=== PATIENT | male | born 2005 | race Caucasian/White ===

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

== ENCOUNTER 2025-02-15 18:24 | Emergency (ER) | payer OTHER ==
[~2025-02-15] VITALS: Ht 188 cm; Wt 113.4 kg
[2025-02-15 19:14] LABS: BASOPHILS ABSOLUTE AUTO 0.07 K/mm3 (0.00-0.23); BASOPHILS PERCENT AUTO 1 % (0-2); EOSINOPHILS ABSOLUTE AUTO 0.03 K/mm3 (0.00-0.68); EOSINOPHILS PERCENT AUTO 0 % (0-6); Hematocrit 44.3 % (37.0-53.0); Hemoglobin 16.1 g/dL (13.5-17.5); IMMATURE GRAN ABSOLUTE AUTO 0.04 K/mm3 (0.00-0.10); IMMATURE GRAN PERCENT AUTO 0 % (0-1); LYMPHOCYTES ABSOLUTE AUTO 1.46 K/mm3 (0.84-5.20); LYMPHOCYTES PERCENT AUTO 11 % (21-46); MONOCYTES ABSOLUTE AUTO 0.72 K/mm3 (0.16-1.47); MONOCYTES PERCENT AUTO 6 % (4-13); Mean Corpuscular HGB 29.4 pg (26.0-34.0); Mean Corpuscular HGB Conc 36.3 g/dL (31.5-36.5); Mean Corpuscular Volume 81 fL (80-100); Mean Platelet Volume 9.7 fL (9.1-12.4); NEUTROPHILS ABSOLUTE AUTO 10.75 K/mm3 (1.96-9.15); NEUTROPHILS PERCENT AUTO 82 % (41-73); Platelet Count 345 K/mm3 (150-400); RDW Coefficient Variation 12.6 % (11.7-14.2); RDW Standard Deviation 36.4 fL (35.1-46.3); Red Blood Cell Count 5.47 M/mm3 (4.30-5.90); White Blood Cell Count 13.07 K/mm3 (4.00-11.30)
[2025-02-15] MEDS ORDERED: Ketorolac Tromethamine 30mg Vial IV ONE (19:15)
[2025-02-15] MEDS ORDERED: Ibuprofen 600 MG Tab PO ONE (19:45)
[2025-02-15 19:49] LABS: Albumin, Blood 4.6 g/dL (3.4-5.0); Albumin/Globulin Ratio 1.5 (0.8-1.8); Bilirubin, Total 0.9 mg/dL (0.1-1.0); Bun/Creatinine Ratio 10.6 (12.0-20.0); Calcium, Blood 9.3 mg/dL (8.5-10.1); Creatinine, Blood 0.76 mg/dL (0.60-1.20); Globulin, Blood 3.1 g/dL (2.2-4.0); Potassium, Blood 4.2 mmol/L (3.5-5.5); Total Protein, Blood 7.7 g/dL (6.4-8.2)
[2025-02-15] MEDS ORDERED: Ibuprofen 400 MG Tab PO ONE (19:55)
[2025-02-15 20:00] VITALS: BP 136/69
== END 2025-02-15 20:59 | disposition left against medical advice (07) ==
LOC: ER 18:24
PROVIDERS: Student in an Organized Health Care Education/Training Program
DX: R55 Syncope and collapse (principal); G93.5 Compression of brain; K21.9 Gastro-esophageal reflux disease without esophagitis; Z53.29 Procedure and treatment not carried out because of patient's decision for other reasons; Z88.0 Allergy status to penicillin; Z79.899 Other long term (current) drug therapy
CPT/HCPCS: 70450; 80053; 84484; 85025; 93005; 93010; 96374; 99284-25; A9270; J1885

== ENCOUNTER 2025-08-17 14:07 | Emergency (ER) | payer OTHER ==
[~2025-08-17] VITALS: Ht 188 cm; Wt 102.1 kg
[2025-08-17] MEDS ORDERED: Cleocin HCl150 MG PO (15:35)
[2025-08-17] MEDS ORDERED: OXAYDO5 M2 PO (15:35)
[2025-08-17 15:52] VITALS: BP 153/99
== END 2025-08-17 15:45 | disposition home or self-care (01) ==
LOC: ER 14:07
DX: K08.89 Other specified disorders of teeth and supporting structures (principal); Z88.0 Allergy status to penicillin; Z79.899 Other long term (current) drug therapy; K21.9 Gastro-esophageal reflux disease without esophagitis
CPT/HCPCS: 99283; A9270